=== PATIENT | female | born 1970 | race Caucasian/White ===

== ENCOUNTER 2022-09-01 07:39 | Day surgery (SDC) | payer OTHER ==
[~2022-09-01] VITALS: Ht 157.5 cm; Wt 78.1 kg
[~2022-09-01 07:39] MED LIST: LEVO100T13 PO; LORA0.5T83 PO; METF-444 PO; PRAV20TA4 PO; SODIUM CHLORIDE 0.9% 1,000 ML ONE
[2022-09-01] MEDS ORDERED: METF-1211 PO (08:03)
[2022-09-01] MEDS ORDERED: DULO-113 PO (08:03)
[2022-09-01] MEDS ORDERED: MELO-381 PO (08:03)
[2022-09-01] MEDS ORDERED: LINA290C PO (08:03)
[2022-09-01] MEDS ORDERED: OMEP20 PO (08:03)
[2022-09-01] MEDS ORDERED: ACET-3385 PO (08:03)
[2022-09-01] MEDS ORDERED: SODIUM CHLORIDE 0.9% 1,000 ML IV ONE (08:30)
[2022-09-01 08:46] LABS: GLUCOMETER DEV NAME(LOC) SDS.; GLUCOSE,POINT OF CARE 99 MG/DL (70-110)
[2022-09-01] MEDS ORDERED: OXYGEN THERAPY IH SCH (10:00)
[2022-09-01] MEDS ORDERED: PROPOFOL 1% 20 ML VIAL IVP ONE (12:00)
[2022-09-01] MEDS ORDERED: LIDOCAINE/PF 2% 5 ML VIAL IM ONE (12:00)
== END 2022-09-01 11:25 | disposition home or self-care (01) ==
LOC: SURGERY 07:39
PROVIDERS: ATTEND Specialist
DX: D64.9 Anemia, unspecified (principal); Z79.899 Other long term (current) drug therapy; F41.9 Anxiety disorder, unspecified; K59.00 Constipation, unspecified; F32.A Depression, unspecified; E03.9 Hypothyroidism, unspecified; M19.049 Primary osteoarthritis, unspecified hand; E66.9 Obesity, unspecified; Z86.15 Personal history of latent tuberculosis infection
CPT/HCPCS: 84703; 43239; 88305; 82962; C1769; J2704; J3490; J7030

== ENCOUNTER 2023-02-17 06:57 | Day surgery (SDC) | payer OTHER ==
[~2023-02-17] VITALS: Ht 162.6 cm; Wt 75.0 kg
[~2023-02-17 06:57] MED LIST changes: +LINA290C PO; -LORA0.5T83 PO; -METF-444 PO; +OMEP20 PO; +SEMA0.258 SQ; +TRAZ-252 PO
[2023-02-17] MEDS ORDERED: GLYCOPYRROLATE 0.2 MG/ML VIAL IM ONE (06:58)
[2023-02-17] MEDS ORDERED: PROPOFOL 1% 20 ML VIAL IVP ONE (06:58)
[2023-02-17] MEDS ORDERED: LIDOCAINE/PF 2% 5 ML SYRINGE IVP ONE (06:58)
[2023-02-17] MEDS ORDERED: SODIUM CHLORIDE 0.9% 1,000 ML IV ONE (07:00)
[2023-02-17 07:51] LABS: GLUCOMETER DEV NAME(LOC) SDS.; GLUCOSE,POINT OF CARE 107 MG/DL (70-110)
[2023-02-17] MEDS ORDERED: OXYGEN THERAPY IH SCH (09:00)
== END 2023-02-17 10:25 | disposition home or self-care (01) ==
LOC: SURGERY 06:57
PROVIDERS: ATTEND Specialist
DX: D50.9 Iron deficiency anemia, unspecified (principal); K64.0 First degree hemorrhoids; Z79.899 Other long term (current) drug therapy; Z98.890 Other specified postprocedural states
CPT/HCPCS: 45378; 82962; 84703; J2704; J3490 ×2; J7030